=== PATIENT | female | born 1975 ===

== ENCOUNTER 2019-02-06 08:52 | Outpatient (CLI) | payer BC ==
--- NOTE | 2019-02-06 10:27 | CT ---
CT CHEST WITH CONTRAST CT ABDOMEN AND PELVIS WITH CONTRAST: HISTORY: Endometrial cancer and cervical cancer. Patient is taking Avastin. TECHNIQUE: 1. Multiple contiguous axial images were obtained in a CT of the chest with contrast. Coronal reform ats were performed. 2. Multiple contiguous axial images were obtained in a CT of the abdomen and pelvis with contrast. P O contrast was administered. Coronal reformats were performed. FINDINGS: CT CHEST: A calcified granuloma is seen in the left lower lobe of the lungs. No other pulmonary nodules are see n. No pneumothorax or pleural effusion seen. The heart is normal in size without focal cardiac abnormality. No hilar or mediastinal lymphadenopath y seen. The patient has a left-sided MediPort with its tip in the superior vena cava. The chest wall soft tis sues are unremarkable. The bones of the thorax are unremarkable. CT ABDOMEN/PELVIS: The patient has a right ureteral stent. There is thickening of the ureters surrounding the stent and surgical clips along the distal aspect of the ureter. The patient is status post hysterectomy. The st ent appears in good position. Mild right-sided hydronephrosis is seen. The liver, gallbladder, adrenal glands, left kidney, spleen, and pancreas are unremarkable. No free a ir, free fluid, or stranding changes are seen in the abdomen or pelvis. The large and small bowel are unremarkable. The appendix is normal. No abdominal or pelvic lymphadenopathy seen. The bones of the pelvis and lumbar spine are unremarkable. The abdominal wall soft tissues are unrema rkable. IMPRESSION: 1. Postsurgical changes from hysterectomy. 2. No evidence of recurrent or metastatic disease. 3. Mild right hydronephrosis with indwelling right ureteral stent. 4. No evidence of intrathoracic metastatic disease. POS: [facility]
[2019-02-06] MEDS ORDERED: Iopamidol 370 76% 100 ML VIAL ONE (10:33)
== END 2019-02-06 08:53 | disposition home or self-care (01) ==
LOC: CT 08:52
PROVIDERS: ATTEND Obstetrics & Gynecology Gynecologic Oncology
DX: C54.1 Malignant neoplasm of endometrium (principal); Z90.710 Acquired absence of both cervix and uterus; N13.30 Unspecified hydronephrosis; Z96.0 Presence of urogenital implants
CPT/HCPCS: 71260; 74177

== ENCOUNTER 2019-03-21 09:05 | Outpatient (CLI) | payer BC ==
[~2019-03-21 09:05] MED LIST: Iopamidol 370 76% 100 ML VIAL ONE
--- NOTE | 2019-03-21 10:26 | CT ---
CT THORAX WITH CONTRAST CT ABDOMEN WITH CONTRAST CT PELVIS WITH CONTRAST: DATE: 03/21/2019 HISTORY: 43-year-old female with endometrial and cervical cancer presents for restaging COMPARISON: 02/06/2019 TECHNIQUE: IV iodinated contrast media: Administered Oral contrast media: Administered Single phase scans of thorax, abdomen, and pelvis. FINDINGS: Lungs are clear. Left internal jugular implantable vascular access port with distal tip in SVC. No pl eural effusion. No mediastinal or hilar lymphadenopathy. No thoracic aortic aneurysm or dissection. Right ureteral stent with upper loop in the right renal pelvis and lower loop within the urinary blad lucinda lumen slightly to the left of midline. Again demonstrated is the mild right hydronephrosis with mural thickening and mural enhancement of the mildly dilated right renal pelvis and of the mildly dil ated right proximal and mid ureter. Surgical clips abutting the mid-distal portion of right ureter bilateral nephrograms are symmetrical. No left-sided hydronephrosis. No major pathology of abdominal aorta, left kidney, adrenals, pancreas, liver, spleen, appendix, or urinary bladder. Uterus surgically absent. Suture line at rectosigmoid junction. No acute colonic diverticulitis. No small zach wel dilation. No ascites or pneumoperitoneum. No retroperitoneal, mesenteric, or iliac chain lymphadenopathy. Tarlov cysts in the sacrum. No destructive osseous lesion identified. No interval change overall. IMPRESSION: 1. No evidence of active malignant neoplastic tumor. 2. Right ureteral stent. 3. Mild right hydroureteronephrosis with mural thickening and enhancement, unchanged. 4. Status post hysterectomy. 5. No interval change since the CT performed less than a month ago.
== END 2019-03-21 09:06 | disposition home or self-care (01) ==
LOC: SCSCT 09:05
PROVIDERS: ATTEND Obstetrics & Gynecology Gynecologic Oncology
DX: C54.1 Malignant neoplasm of endometrium (principal); N13.30 Unspecified hydronephrosis; Z96.0 Presence of urogenital implants; Z90.710 Acquired absence of both cervix and uterus
CPT/HCPCS: 71260; 74177; Q9967